=== PATIENT | male | born 1940 | race Caucasian/White ===

== ENCOUNTER 2017-10-13 18:56 | Inpatient (IN) | payer MEDICARE, MEDICAID ==
[~2017-10-13] VITALS: Ht 182.9 cm; Wt 88.0 kg
[~2017-10-13 18:56] MED LIST: ATORVASTATIN CA10 MG PO; BENTYL20 MG PO; CORTISPORIN OTI10 M2 OTIC; FINASTERIDE5 MG PO; GLUCOPHAGE500 MG PO; LISINOPRIL-HCT1 EACH PO; PROZAC40 MG PO; RANITIDINE HCL75 MG PO; ROBAXIN 750 MG750 M1 PO; TAMSULOSIN HCL0.4 MG PO; TIZANIDINE HCL4 MG PO; TRIAMCINOLONE A15 G1 TP; VICODIN 5-3001 EACH PO; ZOCOR 10 MG TAB10 MG PO
[2017-10-13 19:13] VITALS: BP 163/69
[2017-10-13 20:48] LABS: ABSOLUTE EOSINOPHILS 0.2 thou/uL (0.0-0.7); ABSOLUTE LYMPHOCYTES 2.6 thou/uL (0.8-5.3); ABSOLUTE MONOCYTES 0.7 thou/uL (0.0-1.2); ABSOLUTE NEUTROPHILS 5.8 thou/uL (1.6-8.1); BASOPHILS 0.5 %; EOSINOPHILS 2.5 %; HEMATOCRIT 41.9 % (42.0-52.0); HEMOGLOBIN 14.3 gm/dL (14.0-18.0); LYMPHOCYTES 27.6 %; MCH 29.5 pg (26.0-34.0); MCHC 34.1 g/dL (28.0-37.0); MCV 86.4 fL (80.0-100.0); MONOCYTES 7.6 %; MPV 8.4 fl. (7.2-11.1); NUCLEATED RBCS 0 /100WBC; PLATELET COUNT* 202 thou/uL (150-400); POLYS 61.8 %; RBC 4.84 mil/uL (4.50-6.00); RDW-CV 14.3 % (10.5-14.5); WBC 9.4 thou/uL (4.0-11.0)
[2017-10-13 20:56] LABS: PROTIME 9.8 Seconds (9.20-11.50)
[2017-10-13 21:02] LABS: POTASSIUM 3.5 mmol/L (3.5-5.1)
[2017-10-13 21:06] LABS: ALBUMIN 3.4 g/dL (3.4-5.0); TOTAL BILIRUBIN 0.2 mg/dL (<0.1-1.0); TOTAL PROTEIN 7.5 g/dL (6.4-8.2)
[2017-10-13 22:59] VITALS: BP 118/76
[2017-10-13 23:00] VITALS: BP 166/78
--- NOTE | 2017-10-14 02:33 | NUR ---
PT. ADMITTED TO ROOM 5 ICU AT 2249, MED/SURG STATUS. PT. IS A 77 YEAR OLD ALERT AND ORIENTED MALE, LEGALLY BLIND. WHEELCHAIR BOUND AT HOME. PT. WAS ABLE TO PROVIDE ALL HEALTH HISTORY. BLOOD PRESSURE ELEVATED UPON ADMISSION. GLUCOSE 218. IV SALINE LOCKED. ORIENTED TO ROOM, CALL LIGHT AND URINAL PLACED IN REACH. WILL CONTINUE TO MONITOR.
[2017-10-14 04:31] VITALS: BP 144/53
[2017-10-14 08:00] VITALS: BP 150/58
--- NOTE | 2017-10-14 09:01 | NUR ---
WOUND CARE NOTE: CONSULT RECEIVED FOR CELLULITIS RLE. 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 ERYTHEMA NOTICED TO ALL TOES, HOWEVER THEY ARE COOL TO TOUCH AND PAINFUL. ALSO THERE ARE TWO SMALL, APPROXIMATELY 0.4X0.4 OPENINGS TO THE RIGHT LATERAL FOOT. DRY, STABLE ESCHAR, THE MOST DISTAL AREA WITH ERYTHEMA TO TOM-WOUND AND IS TENDER TO TOUCH. NO DRAINAGE. PATIENT ADMITS TO HAVING TINGLING IN FOOT FOR QUITE SOME TIME, BUT IS UNABLE TO TELL ME EXACT LENGTH OF TIME. RECOMMEND PODUS BOOT TO RIGHT FOOT BETADINE TO ESCHARS ON LATERAL FOOT
--- NOTE | 2017-10-14 11:28 | NUR ---
PT TRANSFERED TO ROOM 116. REPORT GIVEN TO KIRA CRUZ. PT OWN WHEELCHAIR, LEG BRACE, AND BELONGINGS SENT WITH PT.
--- NOTE | 2017-10-14 11:44 | NUR ---
INTERDISICPLINARY ROUNDS: MET WITH PT BRIEFLY AND THEN SPOKE WITH DTR/DAGOBERTO OVER THE PHONE. PT LIVES WITH WHO ALSO HAS HEALTH ISSUES, IS ON O2 06/09. PER DAGOBERTO, BOTH PARENTS HAVE HAD INHOME CARE THRU THEIR MEDICAID THRU [facility]. SHE STATED THAT IT STOPPED ABOUT 3WKS AGO WHEN THEIR CG QUIT. CALL TO [facility] [phone], SPOKE WITH BAN. [facility] ONLY PROVIDES THE CM FOR CDC (CONSUMER DIRECTED CARE) AND PT HAS BEEN RESPONSIBLE FOR GETTING THEIR OWN CG. THEY HAVE OPTION TO SWITCH TO IN HOME CARE THRU AN AGENCY IF DESIRE. DID EXPLAIN ALL THIS TO DAGOBERTO. SHE PLANS TO TALK WITH HER MOTHER ABOUT IT. AT THIS TIME, DAGOBERTO HAS BEEN TRYING TO PROVIDE EXTRA CARE FOR HER PARENTS AND STAYING WITH THEM. 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 SHE STATED THAT PT HAD HAD INCREASED ISSUES WITH MANAGING LATELY AND IF HE IS NOT ABLE TO MANAGE ASSISTING WITH TRANSFERS, SHE CANNOT MANAGE HIM AT HOME. IS NOT ABLE TO ASSIST PT EITHER. PT HAS BEEN ABLE TO TRANSFER, AMBULATE SHORT DISTANCE, WEARS AFO AND ASSIST WITH ADLS. IS INDEPENDENT WITH ADLS. DTR ASSISTS WITH ERRANDS, SHOPPING, ETC. PT DOES NOT HAVE DPOA. PT HAS BEEN TO SNF IN PAST AT [facility] IN [place]. DTR FEELS PT NEEDS SNF AGAIN AND SHE WOULD PREFER [facility] OR [facility], BUT WANTS IT TO BE DISCUSSED WITH PT. SHE FEELS HE NEEDS CONSTANT CARE AND SHE IS NOT ABLE TO PROVIDE IT FOR HIM. PT WAS WORKING WITH OT, WILL TRY TO MEET WITH HIM LATER TO DISCUSS FUTHER.
[2017-10-14 12:10] VITALS: BP 168/72
--- NOTE | 2017-10-14 12:48 | NUR ---
PATIENT TRANSFERRED FROM ICU THIS AM TO ROOM 116. ALERT AND ORIENTED X 4. ASSISTED UP WITH 2 TO BSC, GAIT BELT AND WALKER. LARGE BM NOTED. WOUND CARE TO RIGHT FOOT ORDERED, PODUS BOOT IN PLACE. BED ALARM ON FOR PATIENT SAFETY. AGREE WITH AM CHARTED ASSESSMENT.
--- NOTE | 2017-10-14 14:40 | EKG ---
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: ESTHER : 1940 Requested By: Jason Plunkett Order Number: [id number] MD: Alex Barrios Measurements Intervals [place] Rate: 60 P: 45 DE: 348 QRS: -28 QRSD: 93 T: 167 QT: 453 QTc: 453 Interpretive Statements Sinus rhythm Prolonged DE interval Borderline left axis deviation Repol abnrm suggests ischemia, diffuse leads Baseline wander in lead(s) V4,V5,V6 Compared to ECG 11/02/2013 15:09:12 Early repolarization now present ST (T wave) deviation no longer present Possible ischemia still present Electronically Signed On 10-14-2017 14:40:15 CDT by Alex Barrios [email or web address] <ELECTRONICALLY SIGNED> By: Alex Barrios MD, [facility] 10/14/17 1440 51 51 Alex Barrios MD, [facility] /EPI
--- NOTE | 2017-10-14 16:38 | NUR ---
PATIENT DOWN TO US FOR SUMEET THIS AFTERNOON, SPOKE WITH Kareem TERRELL NP AND RESULTS DO NOT NEED TO BE CALLED TO VASCULAR. IV ABX INFUSED ORDERED. TURNING SELF IN BED. PODUS BOOT IN PLACE TO RIGHT FOOT. ORDERS RECEIVED FOR SURGERY TUES WITH VASCULAR AND NPO AFTER MIDNIGHT ON TUESDAY NIGHT.
[2017-10-14 16:41] VITALS: BP 156/72
[2017-10-15 04:38] LABS: HEMATOCRIT 38.7 % (42.0-52.0); HEMOGLOBIN 13.1 gm/dL (14.0-18.0); MCH 29.3 pg (26.0-34.0); MCHC 33.8 g/dL (28.0-37.0); MCV 86.6 fL (80.0-100.0); MPV 8.4 fl. (7.2-11.1); RBC 4.47 mil/uL (4.50-6.00); RDW-CV 14.5 % (10.5-14.5); WBC 8.3 thou/uL (4.0-11.0)
[2017-10-15 05:46] LABS: CALCIUM 8.3 mg/dL (8.5-10.1); CREATININE 1.1 mg/dL (0.6-1.3); POTASSIUM 3.8 mmol/L (3.5-5.1)
[2017-10-15 07:50] VITALS: BP 167/77
[2017-10-15 16:20] VITALS: BP 158/72
--- NOTE | 2017-10-15 17:50 | NUR ---
PT HAS CELLULITIS OF THE LEFT FOOT. PT DENIES ANY PAIN TODAY. VANC TROUGH DRAWN AT 1230 AND IT WAS 13. NEXT VANC TROUGH SCHEDULED FOR 2029. PT IS HAVING A RIGHT FEMORAL ANGIOGRAM TUESDAY, PT WILL BE NPO BEFORE MIDNIGHT ON 10/17/17. PT REFUSED INSULIN SS, STATED THEY DO NOT WANT IT UNLESS GLUCOSE IS OVER 200. CALL LIGHT IN REACH AND BED ALARM ON. WILL CONTINUE TO MONITOR.
--- NOTE | 2017-10-15 18:02 | NUR ---
NURSING DOCUMENTATION BY HORTENCIA Che RN REVIEWED
[2017-10-15 20:00] VITALS: BP 162/78
--- NOTE | 2017-10-16 04:52 | NUR ---
PATIENT SLEPT WELL DURING THIS SHIFT. PT USES CALL LIGHT APPROPRIATELY TO MAKE NEEDS KNOWN. PT UP TO BSC WITH G.BELT AND ASSIST OF ONE. PT HAD LARGE BOWEL MOVEMENT AND ASSISTED BACK TO BED. PT TURNED APPROX Q2H PER PROTOCAL. PT ALSO ABLE TO REPOSITION HIMSELF IN BED. PT WITH HEMIPARESIS WITH RT SIDED WEAKNESS. PT IS ON ROOM AIR. FREQUENTLY USED ITEMS AND CALL LIGHT WITHIN REACH. SIDERAILS UPX3 AND BED ALARM ON. WILL CONTINUE TO MONITOR.
[2017-10-16 08:47] VITALS: BP 185/90
--- NOTE | 2017-10-16 10:34 | NUR ---
RECORDS FROM [facility] RECEIVED 10/15/17 AND ARE WITH PATIENTS CHART
[2017-10-16 12:03] VITALS: BP 140/59
--- NOTE | 2017-10-16 14:33 | NUR ---
PATIENT WENT DOWN FOR SECOND ATTEMPT AT MRI. ATIVAN AND MORPHINE PRIOR. PATIENT STILL UNABLE TO FINISH MRI. DR. CORREA NOTIFIED. STAT CT ORDERED.
[2017-10-16 15:41] VITALS: BP 141/69
--- NOTE | 2017-10-16 17:11 | NUR ---
PT IS ALERT AND ORIENTED. PT SCHEDULED FOR MRI TODAY, FIRST ATTEMPT WAS UNSUCCESSFUL, PT REFUSED DUE TO PAIN. 2ND MRI ATTEMPT MADE AFTER THE PT WAS GIVEN ATIVAN AND MORPHINE. CT SCAN ORDERED. PT IV BLEW DURING CT, NEW IV PLACED AND PILLOWS PLACED UNDER PT BACK TO RELIEVE PAIN. PT HAS A NEW IV IN THE LEFT ARM. ABX INFUSED ORDERED. PT HAS NEW VANC TROUGH SHCEUDLED FOR 2030 TONIGHT. PT REFUSED SS INSULIN WITH GLUCOSE OF 182. CALL LIGHT IN REACH. BED ALARM ON. WILL CONTINUE TO MONITOR.
[2017-10-17 00:42] VITALS: BP 152/74
--- NOTE | 2017-10-17 03:35 | NUR ---
PATIENT C/O DIFFICULTY VOIDING. PT WITH 500ML OF URINE IN URINAL. PT BLADDER SCANNED AND FOUND TO HAVE 850CC'S OF URINE. ORDER RECEIVED FROM DR CORREA TO PLACE DUONG CATHETER. DUONG PLACED WITH NO DIFFICULTY. PT REPOSITIONED IN BED AND RESTING COMFORTABLY AFTERWARDS. WILL CONTINUE TO MONITOR.
[2017-10-17 04:04] LABS: HEMATOCRIT 40.3 % (42.0-52.0); HEMOGLOBIN 13.4 gm/dL (14.0-18.0); MCH 28.9 pg (26.0-34.0); MCHC 33.2 g/dL (28.0-37.0); MCV 87.2 fL (80.0-100.0); MPV 8.7 fl. (7.2-11.1); RBC 4.62 mil/uL (4.50-6.00); RDW-CV 14.3 % (10.5-14.5); WBC 12.5 thou/uL (4.0-11.0)
[2017-10-17 04:31] LABS: APTT 26.1 Seconds (25.0-31.3); PROTIME 10.1 Seconds (9.20-11.50)
[2017-10-17 04:36] LABS: CALCIUM 8.3 mg/dL (8.5-10.1); CREATININE 0.9 mg/dL (0.6-1.3); POTASSIUM 3.7 mmol/L (3.5-5.1); TOTAL BILIRUBIN 0.4 mg/dL (<0.1-1.0); TOTAL PROTEIN 6.6 g/dL (6.4-8.2)
--- NOTE | 2017-10-17 07:57 | CON ---
[address] [address] CONSULTATION Name: REGINALDO HAIRSTON Room: [address] IN M.R.#: [id number] Admission: 10/13/17 Attend Phys: Eric Barrera Discharge: Date of : 44 Report #: [id number] THIS REPORT FOR: //name// CC: Narciso Islas DATE OF SERVICE: 10/14/2017 ATTENDING PHYSICIAN: Dr. Morales. REASON FOR EVALUATION: Distal right lower extremity inflammatory eruption, likely multifactorial with a component of skin and soft tissue infection, cellulitis. HISTORY OF PRESENT ILLNESS: Chart reviewed, patient examined. 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 [facility] superficial wound involving the lateral aspect of the mid foot. Apparently is exquisitely tender. Noted increasing inflammation. At this point, he has limited mobility, which is diminished even further. Denies significant fevers, none recorded thus far. Due to concerns about a cellulitic process he was started on empiric antimicrobials with vancomycin. Denies significant pulmonary or gastrointestinal related complaints at this point. ALLERGIES: LISTED TO CEPHALEXIN. CURRENT MEDICATIONS: Include enoxaparin, atorvastatin, tamsulosin, finasteride, metformin, fluoxetine, lisinopril, insulin lispro sliding scale, pantoprazole, vancomycin, p.r.n. analgesics, and antiemetics. 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 He is legally blind. SOCIAL HISTORY: Former smoker. No ethanol or illicit drug use. FAMILY HISTORY: Noncontributory. REVIEW OF SYSTEMS: As above. PHYSICAL EXAMINATION: GENERAL: He is pleasant, alert and cooperative. He clearly has got deficits, appears reasonably well nourished, mild distress. VITAL SIGNS: Temperature 98.1, pulse 77, respirations 18, blood pressure 150/58. [place] [address] CONSULTATION Name: REGINALDO HAIRSTON Room: [address] IN [facility]#: [id number] Admission: 10/13/17 Attend Phys: Eric Barrera Discharge: Date of : 44 Report #: [id number] SKIN: Warm, dry, no rashes. HEENT: Notable for the legal blindness. NECK: Supple. LUNGS: Clear breath sounds. HEART: Regular. I do not appreciate any murmur. ABDOMEN: Soft, nontender. There is a drop foot, right lower extremity. He does have some degree of movement, although there is some level of contracture at the ankle. He has got a small area, has got some superficial erythema, eschar on the lateral aspect of the mid foot. This is exquisitely tender as proportions would expect given the appearance is cool to touch diminished pulses. GENITOURINARY: Deferred. RECTAL: Deferred. LABORATORY DATA: Blood cultures sterile thus far. Lactic acid initial study was 2.5, increased to 3.0, now 1.5. Electrolytes: Sodium 138, potassium 3.5, chloride 103, bicarbonate is 28, anion gap of 7, BUN and creatinine 7 and 1.0, glucose of 145. LFTs unremarkable. Albumin of 3.4. Total protein of 7.5. Estimated GFR of 73. PT of 9.8, INR 1.0. CBC: White count of 9.4, H and H 14.3 and 41.9, platelets of 202. ASSESSMENT: Right distal lower extremity inflammatory eruption may be a component of cellulitis. Continue empiric therapy with vancomycin. Presume a staph strep etiology. There is some concern about possibility of arterial occlusive disease and Doppler had been ordered. We will get a plain film as well to exclude possibility of osteomyelitis. We will monitor expectantly. <ELECTRONICALLY SIGNED> By: Wicho Escoto MD 10/17/17 0757 1138 2250Joalfonso Escoto MD /nt
[2017-10-17 08:45] VITALS: BP 153/75
[2017-10-17 16:00] VITALS: BP 133/52
--- NOTE | 2017-10-17 18:06 | NUR ---
PATIENT ALERT AND ORIENTED X 4. VITAL SIGNS STABLE ON ROOM AIR. IV PATENT AND SALINE LOCKED. DUONG PATNET AND DRAINING DEPENDANTLY. DENIES PAIN AND NAUSEA. TURNED PATIENT EVERY TWO HOURS. PATIENT REFUSED TO WEAR BOOT ON RIGHT LEG. EDUCATION GIVEN. FALL PRECAUTIONS IN PLACE AND BED ALARM ON. HOURLY ROUNDS MAINTAINED THROUGHOUT THE SHIFT. CALL LIGHT WITHIN REACH. NURSING WILL CONTINUE TO MONITOR.
[2017-10-17 20:15] VITALS: BP 153/62
[2017-10-18] VITALS (7 sets, daily range): BP systolic 90–174; BP diastolic 57–79
[2017-10-18 04:02] LABS: HEMATOCRIT 37.4 % (42.0-52.0); HEMOGLOBIN 12.5 gm/dL (14.0-18.0); MCH 28.9 pg (26.0-34.0); MCHC 33.3 g/dL (28.0-37.0); MCV 86.7 fL (80.0-100.0); MPV 8.7 fl. (7.2-11.1); RBC 4.32 mil/uL (4.50-6.00); RDW-CV 14.5 % (10.5-14.5); WBC 9.9 thou/uL (4.0-11.0)
[2017-10-18 04:32] LABS: CALCIUM 7.9 mg/dL (8.5-10.1); CREATININE 0.9 mg/dL (0.6-1.3); POTASSIUM 3.5 mmol/L (3.5-5.1)
--- NOTE | 2017-10-18 04:55 | NUR ---
PATIENT REMAINS ALERT AND ORIENTED X4 THROUGHOUT SHIFT. VITAL SIGNS STABLE ON ROOM AIR. IV PATENT IN THE LEFT FOREARM SALINE LOCKED. IV ANTIBIOTICS INFUSED PER ORDERS. DENIES PAIN OR NAUSEA. DECLINES SCD'S AND BOOTS TO OFFLOAD HEELS. PATIENT HAS MAINTAINED NPO STATUS SINCE MIDNIGHT. NURSING CONTINUES TO ENCOURAGE PATIENT TO REPOSITION ATLEAST EVERY TWO HOURS. CONSENT FOR PROCEDURE HAS NOT BEEN SIGNED BY DAUGHTER. NURSING SPOKE WITH DAUGHTER AND INFORMED HER CONSENT NEEDS TO BE SIGNED. DUONG PATENT AND DRAINING YELLOW URINE. FALL PRECAUTIONS IN PLACE. HOURLY ROUNDING COMPLETE. CALL LIGHT WITHIN REACH. NURSING WILL CONTINUE TO MONITOR.
[2017-10-18 05:13] LABS: URINE BILIRUBIN NEGATIVE (Negative); URINE BLOOD 3+ (Negative); URINE CLARITY SL CLOUDY; URINE COLOR YELLOW; URINE GLUCOSE-RANDOM NEGATIVE (Negative); URINE KETONES NEGATIVE (Negative); URINE LEUKOCYTES-REFLEX NEGATIVE (Negative); URINE NITRITE-REFLEX NEGATIVE (Negative); URINE PROTEIN 2+ (Negative); URINE SPECIFIC GRAVITY >= 1.030 (1.005-1.030); URINE UROBILINOGEN 0.2 E.U./dl (0.2-1.0)
[2017-10-18 05:42] LABS: BACTERIA-REFLEX 1-9 Few /HPF (None Seen); CASTS None Seen /LPF (None Seen); MUCUS 4-6 Moderate strn/LPF (None Seen); SQUAMOUS 0-3 Few /LPF (0-3); URINE WBC-REFLEX 0-5 Rare /HPF (0-5)
[2017-10-18 05:43] LABS: AMORPHOUS URATES Moderate /LPF (None Seen)
--- NOTE | 2017-10-18 11:00 | NUR ---
PT.ASKED TO SEE LEONID. HE WAS QUESTIONING WHY CANNOT GET HIS BLIND PENSION AND MEDICAID SERVICES, BOTH. HE SAID HE GOT THEM BOTH QUITE A FEW YEARS AGO BUT NOW CANNOT. EXPLAINED IT IS JUST A RULE THEY HAVE THAT IF YOU HAVE ONE YOU CANNOT HAVE THE OTHER. HE SAID HE HAD CHOSEN TO HAVE SERVICES OVER THE PENSION. HE HAS TO GET HIS OWN CARE GIVERS,HOWEVER. HAD TO CUT CONVERSATION SHORT, VASCULAR CAME IN TO TALK WTH HIM. SEE LEONID NOTE OF 10/14. 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
--- NOTE | 2017-10-18 16:47 | NUR ---
REPORT TO MARCIA MALONE
[2017-10-18 16:54] LABS: HEMOGLOBIN 12.6 gm/dL (14.0-18.0)
--- NOTE | 2017-10-18 17:01 | NUR ---
PT TRANSFERRED TO ICU POST OP SURGERY.
[2017-10-18 17:06] LABS: CALCIUM 7.8 mg/dL (8.5-10.1); CREATININE 0.9 mg/dL (0.6-1.3); POTASSIUM 3.4 mmol/L (3.5-5.1)
[2017-10-18 17:33] LABS: POTASSIUM 3.9 mmol/L (3.5-5.1)
--- NOTE | 2017-10-18 18:01 | NUR ---
PATIENT ARRIVED TO UNIT AT 1710 FROM PACU. AOX4, BUT REMAINS GROGGY AT THIS TIME. HARD OF HEARING. DOES HAVE SOME VISION ISSUES. STATES HE CAN SEE SHAPES/SHADOWS. TRACING NSR ON PARACHUTE OFFICER. VITALS WNL. CARDENE ORDERS FOR HIGH BLOOD PRESSURES, BUT UPON ARRIVING BLOOD PRESSURE WNL. INCISION TO RIGHT GROIN APPROX 3 INCHES WITH DERMABOND IN PLACE, WELL APPROXIMATED, MINOR SWELLING AND BRUISING. PATIENT DENIES PAIN, JUST SORENESS, WHICH HE STATES HE DOES NOT NEED MEDICATION FOR. PATIENT STATES HE IS NAUSEATED. PRN ZOFRAN GIVEN. STARTED ON CLEAR LIQUIDS, ADVANCE TOLERATED PER STANDING ORDERS. 1/2 NS INFUSING PER EMAR. NEW IV 18G PLACED IN LFA PER ICU PROTOCOL. DENIES FURTHER NEEDS FROM NURSING AT THIS TIME. INSTRUCTED TO LEAVE RIGHT LEG STRAIGHT POSSIBLE TO PREVENT OPENING OF INCISION SITE.
[2017-10-19] VITALS: BP 116/52
--- NOTE | 2017-10-19 04:52 | NUR ---
PATIENT PROGRESSING TOWARDS GOALS: PATIENT RECEIVED PAIN RELIEF WITH ONE HYDROCODONE THIS SHIFT. PATIENT HAS BEEN REPOSITIONED Q2H FOR SKIN INTEGRITY. RIGHT GROIN INCISION APPROX 3 INCH WELL APPROXIMATED WITH MINIMAL BRUISING, REDNESS, AND SWELLING. SENSATION INTACT IN RIGHT LOWER EXT WITH <3 SEC CAP REFILL. PATIENT WEANED OFF O2, NOW ON ROOM AIR WITH SATS 93%. LEFT FA IV INTACT WITH IVF INFUSING PER ORDERS. CALL LIGHT WITHIN REACH.
--- NOTE | 2017-10-19 07:44 | OP ---
[address] [address] OPERATIVE REPORT Name: REGINALDO HAIRSTON Room: [address] IN M.R.#: [id number] Admission: 10/13/17 Attend Phys: Eric Barrera Discharge: Date of : 44 Report #: [id number] THIS REPORT FOR: //name// CC: Narciso Islas DATE OF SERVICE: 10/18/2017 PREOPERATIVE DIAGNOSIS: Severe peripheral arterial disease of the right lower extremity. POSTOPERATIVE DIAGNOSIS: Severe peripheral arterial disease of the right lower extremity. OPERATION: 1. Right common femoral endarterectomy with a bovine pericardial patch angioplasty. 2. Right lower extremity angiogram. 3. Right superficial femoral artery angioplasty with a Lutonix drug-coated balloon. 4. Right superficial femoral artery and popliteal artery angioplasty and stent with a 6 x 200 and a 6 x 80 LifeStent. SURGEON: Kamlesh Painter DO CENTRIFUGE OPERATOR: MICHAEL Hanson. ANESTHESIA: General. ESTIMATED BLOOD LOSS: 250 mL. FLUIDS AND URINE OUTPUT: See Anesthesia report. SPECIMENS: Right femoral plaque. IMPLANTS: 1. Bovine pericardial patch in the right common femoral artery. 2. A 6 x 200 and a 6 x 80 LifeStent in the superficial femoral and popliteal artery in the right. COMPLICATIONS: None. FINDINGS: The right common femoral artery was heavily calcified and was completely occluded. His right deep femoral artery is patent with some mild to moderate atherosclerotic disease just distal to the origin. His right superficial femoral artery had moderately severe diffuse disease throughout its [facility] [address] [place] [address] OPERATIVE REPORT Name: REGINALDO HAIRSTON Room: [address] IN .R.#: [id number] Admission: 10/13/17 Attend Phys: Eric Barrera Discharge: Date of : 42 Report #: [id number] course and at the adductor hiatus. He had a focal occlusion with reconstitution of the above knee popliteal artery, which had some moderate to moderately severe diffuse stenosis. His anterior tibial artery was the main runoff and appeared to occlude in the midcalf with reconstitution. His peroneal and posterior tibial artery reconstituted in the midcalf via collaterals. Following angioplasty and stent and femoral endarterectomy, there was excellent inline flow into the anterior tibial artery, minimal residual stenosis. CLINICAL HISTORY: The patient is a 77-year-old man with known severe peripheral vascular disease. He previously had wounds on the right lower extremity, which are nearly healed. He presents today for intervention and revascularization. DESCRIPTION OF PROCEDURE: After informed consent was obtained, the patient was taken to the operating room and placed on the OR bed in supine position. He was administered general anesthesia by the Anesthesia Team. Right lower extremity was prepped and draped in the usual sterile fashion. A full timeout was performed identifying correct patient and procedure. Next, a longitudinal incision was made in the right groin. Dissection was carried down through skin and subcutaneous tissues, both sharply and with electrocautery. The femoral sheath was incised. Femoral artery was circumferentially mobilized proximally and distally and controlled with Silastic vessel loops in Murphy fashion. Multiple side branches were controlled as well. At this point, I administered 8000 units of intravenous heparin. This allowed to circulate for 3 minutes. I then made a longitudinal arteriotomy and extended with Murphy scissors onto the proximal superficial femoral artery and distal external iliac artery. I performed a standard endarterectomy with eversion endarterectomy in the deep femoral artery as well as eversion endarterectomy of the external iliac artery. I then freed the artery of all intimal debris. I then performed a patch angioplasty with bovine pericardial patch with running 5-0 Prolene suture. Prior to completion of the suture line, the artery was allowed to fore and backbleed then the artery was flushed with heparinized saline. Suture line was completed and flow was restored first in the deep femoral artery and then distally down the superficial femoral artery. At this point, I then used a micropuncture needle and punctured the patch in antegrade fashion and then using Seldinger technique, microwire and microsheath were placed. I then performed the right lower extremity angiogram from the right femoral artery with the findings noted above. I then used the Glidewire Advantage and was able to navigate down to the distal superficial femoral artery, exchanged out for a 6-Maltese sheath and a seeker catheter. I then performed further selective imaging, which demonstrated the distal SFA occlusion at the adductor canal. I then was able to use the Glidewire Advantage and a seeker catheter, and navigated across the occlusion. Followup imaging confirmed intraluminal position of the distal popliteal artery as well as the runoff. At this point, I then used the 5 mm Lutonix drug-coated balloon and then angioplastied the proximal popliteal artery and superficial femoral artery at the occlusion site. I then used the remainder of the Lutonix to angioplasty the remainder of the SFA [address] [address] OPERATIVE REPORT Name: REGINALDO HAIRSTON Room: [address] IN .R.#: [id number] Admission: 10/13/17 Attend Phys: Alejandra JacoboPretty Eric Islas Discharge: Date of : 44 Report #: [id number] up to the origin. This demonstrated improved result with better flow; however, there was still some moderately severe stenosis in a few areas. Therefore, decided to stent the SFA. Used a 6 x 200 and a 6 x 80 LifeStent to span from the origin of the endarterectomy site proximally down to the above knee popliteal artery crossing the occluded area. This was postdilated with a 5 mm Ultraverse balloon. Followup imaging demonstrated great result with really minimal residual stenosis. At this point, I did not treat his tibial disease; as improving his inflow, I believe should markedly improve his symptoms. Satisfied with the result, the wire and the sheath were removed and the access site was closed with a 5-0 Prolene suture. Partially, reversed the heparin with 40 mg protamine. Once hemostasis was ensured, the wound was irrigated with antibiotic solution and was closed in layers with 2-0 and 3-0 Vicryl, 4-0 Monocryl in the skin and Dermabond was applied. All sponge, sharp and instrument counts reported as correct x 2. He tolerated the procedure well and transferred to recovery in a stable condition. <ELECTRONICALLY SIGNED> By: Kamlesh Painter DO 10/19/17 0744 1552 1941Abettye Painter DO /nt
[2017-10-19 08:01] VITALS: BP 140/55
[2017-10-19 08:34] LABS: HEMOGLOBIN 11.7 gm/dL (14.0-18.0); MCH 29.2 pg (26.0-34.0); MCHC 33.6 g/dL (28.0-37.0); MPV 8.4 fl. (7.2-11.1); RBC 4.02 mil/uL (4.50-6.00); RDW-CV 14.8 % (10.5-14.5); WBC 10.8 thou/uL (4.0-11.0)
[2017-10-19 08:40] LABS: CALCIUM 7.6 mg/dL (8.5-10.1); POTASSIUM 3.5 mmol/L (3.5-5.1)
--- NOTE | 2017-10-19 10:00 | NUR ---
INTERDISCIPLINARY ROUNDS: PER NURSING, PT TO MOVE TO TELEMETRY TODAY. IS PAINFUL AND WAS ' WT' TO TRANSFER. THERAPY ORDERED, WILL AWAIT EVALS AND DISCUSS SNF WITH PT AGAIN THIS AFTERNOON
[2017-10-19 12:00] VITALS: BP 127/50
--- NOTE | 2017-10-19 12:23 | NUR ---
PATIENT ALERT CO PAIN IN GROIN. LIDOCAINE PATCH ON LOW BACK. TOTAL LIFT TO COMMODE NO RESULTS.
[2017-10-19 20:00] VITALS: BP 165/58
[2017-10-20] VITALS: BP 164/77
--- NOTE | 2017-10-20 00:34 | NUR ---
RECEIVED REPORT AND ASSUMED CARE OF PATIENT AT 1930. RADIO INSTALLER IN PLACE TRACING SR 1AVB. ASSESSMENT AND VITALS COMPLETED CHARTED VSS. PATIENT A&OX4. PATIENT HAD C/O PAIN IN RIGHT GROIN/ LOWER ABDOMEN WHERE INCISION IS. HYDROCODONE ADMINISTERED WITH RELIEF. INCISION WELL APPROXIMATED WITH DERMABOND. MINIMAL BRUISING AND SWELLING. GOAL IS FOR CONTINUED PAIN RELIEF AND PROMOTE REST AND COMFORT. CALL LIGHT WITHIN REACH.
[2017-10-20 04:00] VITALS: BP 133/47
[2017-10-20 05:04] LABS: HEMOGLOBIN 11.3 gm/dL (14.0-18.0); MCH 29.3 pg (26.0-34.0); MCHC 34.2 g/dL (28.0-37.0); MCV 85.8 fL (80.0-100.0); MPV 8.6 fl. (7.2-11.1); RBC 3.84 mil/uL (4.50-6.00); RDW-CV 14.7 % (10.5-14.5); WBC 9.3 thou/uL (4.0-11.0)
[2017-10-20 05:26] LABS: ALBUMIN 2.4 g/dL (3.4-5.0); CALCIUM 7.3 mg/dL (8.5-10.1); CREATININE 0.9 mg/dL (0.6-1.3); MAGNESIUM 1.8 mg/dL (1.8-2.4); POTASSIUM 3.1 mmol/L (3.5-5.1); TOTAL BILIRUBIN 0.5 mg/dL (<0.1-1.0); TOTAL PROTEIN 5.5 g/dL (6.4-8.2)
--- NOTE | 2017-10-20 07:20 | NUR ---
CHNAGE OF SHIFT BEDSIDE REPORT GIVEN PATIENT SEEN AT BEDSIDE, IN BED RESTING ASSUMED PATIENT CARE
[2017-10-20 08:00] VITALS: BP 166/67
--- NOTE | 2017-10-20 09:39 | NUR ---
HEARD BACK FROM SANDR[facility]/ SALVADORChinedu BASS, THEY CAN ACCEPT PT TO SNF [facility] [place]
[2017-10-20] MEDS ORDERED: CLOPIDOGREL75 MG PO (11:02)
[2017-10-20] MEDS ORDERED: DYNACIN100 MG PO (11:02)
[2017-10-20] MEDS ORDERED: ASPIR 8181 MG PO (11:02)
[2017-10-20] MEDS ORDERED: TRAMADOL 50 MG50 MG PO (11:02)
[2017-10-20] MEDS ORDERED: HYDROCODON-ACE1 EAC7 PO (11:02)
[2017-10-20 12:00] VITALS: BP 185/74
[2017-10-20 13:05] VITALS: BP 166/67
--- NOTE | 2017-10-20 14:09 | NUR ---
ORDERS NOTED FOR DC TO SNF. PT TO GO TO [facility], CALLED AND FAXED ORDERS TO [facility]. CHART COPIED. [facility] ARRANGED FOR W/C VAN AT 1630. MET WITH PT AND SPOKE WITH ILSA/DAGOBERTO, IN AGREEMENT. RN HAS NUMBER TO CALL REPORT.
[2017-10-20] MEDS ORDERED: LIDOCAINE1 EACH TRANSDERM (15:52)
[2017-10-20 15:53] VITALS: BP 185/74
--- NOTE | 2017-10-20 16:45 | NUR ---
DISCHARGE TO [facility] IV AND HEART MONITOR REMOVED PERSONAL BELONGINGS RETURNED COPIES OF ORDERS AND CHART SENT PATIENT DISCHARGED VIA WC IN GGOD CONDITION TO VAN REPORT GIVEN TO NURSE AT [facility]
--- NOTE | 2017-10-21 18:07 | PATH ---
[address] [address] PATHOLOGY RPT PROCEDURE Name: PRANAY HAIRSTON Room: [address] IN M.R.#: [id number] Admission: 10/13/17 Date of : 44 Discharge: 10/20/17 Report #: [id number] Path Case #: [id number] [facility] Accession Number: [id number] . 01 Material submitted: . RIGHT FEMORAL ARTERY PLAQUE . 01 Clinical history: . Right lower extremity peripheral vascular disease . 02 Diagnosis: Right femoral artery plaque: - Fibrointimal atherosclerotic plaque with prominent calcification. (ROSARIO:pit 10/21/2017) QTP/10/21/2017 . 02 Electronically signed: . Yuriy Martines MD, Pathologist NPI- [id number] . 01 Gross description: . Received in formalin labeled "Pranay Hairston, right femoral artery plaque," is a roughly tubular segment of yellow-lopes, rubbery tissue measuring 6.2 cm in length by 1.0 cm in diameter. Sectioning of the specimen reveals partially calcified cut surfaces, as well as an interior cavity partially obstructed by a granular, malhotra-lopes material. The specimen is submitted representatively in cassette A1, following decalcification. (DAC; 10/19/2017) XDC/XDC . 02 Pathologist provided ICD-10: I70.211 . 02 CPT . 385071, [id number] Performed at: [address], [place] [id number] MD Richard Darden MD Phone: [phone] Performed at: 02 [facility] [address], [place], [place] [id number] MD Yuriy Martines MD Phone: [phone]
[2017-12-15] MEDS ORDERED: LIORESAL 10 MG10 MG PO (17:29)
[2017-12-15] MEDS ORDERED: MELATONIN3 MG PO (17:29)
[2017-12-19] MEDS ORDERED: COLACE100 MG PO (15:40)
[2017-12-19] MEDS ORDERED: MIRALAX17 GM PO (15:41)
[2018-01-02] MEDS ORDERED: NORCO 5-325 TA1 EACH PO (14:45)
[2018-01-02] MEDS ORDERED: LOPRESSOR50 PO (14:46)
[2018-01-02] MEDS ORDERED: HYDROXYZINE HCL25 M1 PO (14:46)
[2018-01-02] MEDS ORDERED: PROTONIX40 M1 PO (14:47)
[2018-01-02] MEDS ORDERED: HUMALOG100 UNIT/1 SUBQ (15:00)
== END 2017-10-20 16:45 | DRG 253 ==
LOC: M.ERS 18:56 → M.TBA-ER 21:54 → M.ORTHSURG 21:54 → M.ICU 21:54 → M.ORTHSURG 10-14 11:45 → M.ICU 10-18 16:48 → M.2W 10-19 14:35
PROVIDERS: Family Medicine; Internal Medicine; Physician Assistant Surgical; Surgery; ADMIT Internal Medicine
PROC: 04CK0ZZ Extirpation of Matter from Right Femoral Artery, Open Approach (ICD-10-PCS; principal; 2017-10-18)
PROC: 04UK0JZ Supplement Right Femoral Artery with Synthetic Substitute, Open Approach (ICD-10-PCS; principal; 2017-10-18)
PROC: B41F1ZZ Fluoroscopy of Right Lower Extremity Arteries using Low Osmolar Contrast (ICD-10-PCS; principal; 2017-10-18)
PROC: 047M3DZ Dilation of Right Popliteal Artery with Intraluminal Device, Percutaneous Approach (ICD-10-PCS; principal; 2017-10-18)
PROC: 047K3D1 Dilation of Right Femoral Artery with Intraluminal Device, using Drug-Coated Balloon, Percutaneous Approach (ICD-10-PCS; principal; 2017-10-18)
DX: E11.51 Type 2 diabetes mellitus with diabetic peripheral angiopathy without gangrene (principal); L03.115 Cellulitis of right lower limb; L97.819 Non-pressure chronic ulcer of other part of right lower leg with unspecified severity; I69.351 Hemiplegia and hemiparesis following cerebral infarction affecting right dominant side; I82.501 Chronic embolism and thrombosis of unspecified deep veins of right lower extremity; E11.622 Type 2 diabetes mellitus with other skin ulcer; I73.9 Peripheral vascular disease, unspecified; I10 Essential (primary) hypertension; E78.5 Hyperlipidemia, unspecified; F32.9 Major depressive disorder, single episode, unspecified; K21.9 Gastro-esophageal reflux disease without esophagitis; F41.9 Anxiety disorder, unspecified; H54.8 Legal blindness, as defined in USA; Z79.899 Other long term (current) drug therapy; Z88.8 Allergy status to other drugs, medicaments and biological substances; Z87.891 Personal history of nicotine dependence

== ENCOUNTER → 2017-11-30 | Outpatient (CLI) | payer MEDICARE, MEDICAID ==
[~2017-11-30] MED LIST changes: +ASPIR 8181 MG PO; +CLOPIDOGREL75 MG PO; +COLACE100 MG PO; +DYNACIN100 MG PO; +HYDROCODON-ACE1 EAC7 PO; +LIDOCAINE1 EACH TRANSDERM; +LIORESAL 10 MG10 MG PO; +MELATONIN3 MG PO; +MIRALAX17 GM PO; +TRAMADOL 50 MG50 MG PO
[2017-11-30 10:41] LABS: CREATININE 0.9 mg/dL (0.6-1.3)
== END ==
LOC: M.LAB 10:18 → M.CT 11:30
PROVIDERS: Surgery
DX: I70.213 Atherosclerosis of native arteries of extremities with intermittent claudication, bilateral legs (principal)